=== PATIENT | female | born 1965 | race Caucasian/White ===

== ENCOUNTER → 2016-07-10 | Day surgery (SDC) | payer BC ==
[~2016-07-10] VITALS: Ht 162.6 cm; Wt 61.2 kg
[~2016-07-10] MED LIST: IBUP600T26 PO; IBUPROFEN 600 MG TAB PO PRN; KETOROLAC 60 MG/2 ML VIAL (J1885) As Ordered ONE; LIDOCAINE 1% MDV 20ML VIAL As Ordered ONE; LIDOCAINE 2% INJ 100 MG/5 ML SDV (FOR ANES.) As Ordered ONE; LR 1,000 ML IV SCH; MIDAZOLAM INJ 2 MG/2 ML VIAL (J2250) As Ordered ONE; NORCO, ANEXSIA 5/325MG TABLET (HYDROcodone/ACETAMINOPHEN) PO PRN; NORCOTAB PO; ONDANSETRON 4MG/2ML VIAL (J2405) As Ordered ONE; PROPOFOL 200 MG/20 ML VIAL As Ordered ONE; fentaNYL 100 MCG/2 ML INJECTION (J3010) As Ordered ONE
[2016-07-10 09:29] LABS: CONTROL LINE UCG INT CTR LINE PRESENT
[2016-07-10 13:52] VITALS: BP 125/67
--- NOTE | 2016-07-11 05:27 | RO ---
DATE OF PROCEDURE: 07/10/2016 PREOPERATIVE DIAGNOSES/INDICATION FOR SURGERY: Menorrhagia, dysmenorrhea. POSTOPERATIVE DIAGNOSES: Menorrhagia, dysmenorrhea. PROCEDURE: Dilation and curettage, hysteroscopy, NovaSure ablation and paracervical block. SURGEON: Chitra Lee MD SOCIAL MEDIA CONTENT SPECIALIST: ANESTHESIA: Monitored anesthesia care (MAC) and the paracervical block I placed. BRIEF DESCRIPTION OF PROCEDURE AND FINDINGS: Rebecca was brought to the operating room where MAC sedation was given and then after prepping and emptying of the bladder we placed a paracervical block with a total of 20 mL of 1% lidocaine without epinephrine giving 5 mL each at 2, 4, 8 and 10 o'clock on the cervix in the usual fashion using a spinal needle. We waited a full minute for that to set up and then carefully sounded and dilated the uterus. We had an endometrial cavity length of 6 after sounding to 4 and 10 for her cervix and total uterus, respectively. We then carefully dilated in order to allow the hysteroscope to be placed and visualize the endometrial cavity, which was normal in appearance. There were normal ostia, slight irregularity to the anterior right consistent with the possibility of either scar, intramural lesion that sort of thing, but no endometrial lesion involved in this. We then further dilated the cervix in order to allow the introduction of the NovaSure. Length had already been measured at 6. Width was measured at 4.5 and an uncomplicated NovaSure after passing first visualization with no perforation and sounding with no perforation and then, the device with no perforation we then had an uncomplicated NovaSure ablation and the procedure was then ended. Estimated blood loss is less than 5 mL. Fluid replacement was crystalloid. Complications: None. Condition and disposition: Rebecca tolerated the procedure well and was recovering in the recovery room in good condition.
== END | disposition home or self-care (01) ==
LOC: M SDC 08:45
PROVIDERS: ATTEND Obstetrics & Gynecology
DX: N92.0 Excessive and frequent menstruation with regular cycle (principal); N94.6 Dysmenorrhea, unspecified
CPT/HCPCS: 58563; 84703; 88305; C2618; J1885; J2250; J2405; J3010

== ENCOUNTER → 2018-03-06 | Outpatient (CLI) | payer BC | LOC: M WHC 13:26 | DX: Z12.31 Encounter for screening mammogram for malignant neoplasm of breast (principal) | CPT/HCPCS: 77067 ==

== ENCOUNTER → 2019-03-09 | Outpatient (CLI) | payer BC ==
[~2019-03-09] MED LIST changes: +HYDR-3715 PO; +IBUP-1022 PO; -IBUP600T26 PO; -IBUPROFEN 600 MG TAB PO PRN; -KETOROLAC 60 MG/2 ML VIAL (J1885) As Ordered ONE; -LIDOCAINE 1% MDV 20ML VIAL As Ordered ONE; -LIDOCAINE 2% INJ 100 MG/5 ML SDV (FOR ANES.) As Ordered ONE; -LR 1,000 ML IV SCH; -MIDAZOLAM INJ 2 MG/2 ML VIAL (J2250) As Ordered ONE; -NORCO, ANEXSIA 5/325MG TABLET (HYDROcodone/ACETAMINOPHEN) PO PRN; -NORCOTAB PO; -ONDANSETRON 4MG/2ML VIAL (J2405) As Ordered ONE; -PROPOFOL 200 MG/20 ML VIAL As Ordered ONE; -fentaNYL 100 MCG/2 ML INJECTION (J3010) As Ordered ONE
--- NOTE | 2019-03-09 16:52 | REPMRS ---
Patient History The patient states she has not had a clinical breast exam in over a year. No known family history of cancer. No Hormone Replacement Therapy Digital Woman Screen Mammo: March 09, 2019 - Exam #: [id number] Bilateral CC and MLO view(s) were taken. Technologist: Nathalia Jose, Technologist Prior study comparison: March 06, 2018, bilateral digital woman screen mammo performed at [facility]. March 05, 2017, digital woman screen mammo performed at [facility]. March 02, 2016, digital woman screen mammo performed at [facility]. FINDINGS: The breast tissue is heterogeneously dense. This may lower the sensitivity of mammography. There is a moderate amount of heterogeneously dense fibroglandular tissue which is fairly symmetric. There is no interval development of dominant mass, architectural distortion, or grouped microcalcification typical of malignancy. There has been no change in the appearance of the mammogram from the prior studies. 3-D tomosynthesis shows no additional findings. Assessment: BI-RADS/ACR category 1 mammogram. Negative Mammogram. Recommendation Routine screening mammogram of both breasts in 1 year (for women over age 40). This patient's Lifetime Breast Cancer RIsk is estimated at 7.7 %. This mammogram was interpreted with the aid of an FDA-approved computer-aided dectection system. Electronically Signed By: Saurabh Rivas MD 03/09/19 [id number]
== END ==
LOC: M WHC 13:48
PROVIDERS: ATTEND Nurse Practitioner Women's Health
DX: Z12.31 Encounter for screening mammogram for malignant neoplasm of breast (principal)

== ENCOUNTER → 2020-03-10 | Outpatient (CLI) | payer BC ==
--- NOTE | 2020-03-10 15:03 | REPMRS ---
Patient History The patient states she had a clinical breast exam in 2019. No known family history of cancer. No Hormone Replacement Therapy Digital Woman Screen Mammo: March 10, 2020 - Exam #: [id number] Bilateral CC and MLO view(s) were taken. Technologist: Shaylee Toscano, Technologist Prior study comparison: March 09, 2019, bilateral digital woman screen mammo performed at [facility]. March 06, 2018, bilateral digital woman screen mammo performed at [facility]. March 05, 2017, digital woman screen mammo performed at [facility]. FINDINGS: The breast tissue is heterogeneously dense. This may lower the sensitivity of mammography. The Volpara volumetric breast density category is: C. There is a moderate amount of heterogeneously dense fibroglandular tissue which is fairly symmetric. There is no interval development of dominant mass, architectural distortion, or grouped microcalcification typical of malignancy. There has been no change in the appearance of the mammogram from the prior studies. 3-D tomosynthesis shows no additional findings. Assessment: BI-RADS/ACR category 1 mammogram. Negative Mammogram. Recommendation Routine screening mammogram of both breasts in 1 year (for women over age 40). This patient's Lifetime Breast Cancer RIsk is estimated at 7.5 %. This mammogram was interpreted with the aid of an FDA-approved computer-aided dectection system. Electronically Signed By: Saurabh Rivas MD 03/10/20 0557
== END ==
LOC: M WHC 13:09
PROVIDERS: ATTEND Nurse Practitioner Women's Health
DX: Z12.31 Encounter for screening mammogram for malignant neoplasm of breast (principal); N64.89 Other specified disorders of breast

== ENCOUNTER → 2020-03-10 | Outpatient (REF) | payer BC | LOC: M SFHCWAGY 17:29 | PROVIDERS: ATTEND Nurse Practitioner Women's Health | DX: Z12.4 Encounter for screening for malignant neoplasm of cervix (principal); Z01.419 Encounter for gynecological examination (general) (routine) without abnormal findings ==

== ENCOUNTER → 2021-04-07 | Outpatient (CLI) | payer BC | LOC: M WHC 12:52 | PROVIDERS: ATTEND Nurse Practitioner Women's Health | DX: Z12.31 Encounter for screening mammogram for malignant neoplasm of breast (principal) ==

== ENCOUNTER → 2021-04-25 | Outpatient (CLI) | payer BC | LOC: M WHC 12:26 | PROVIDERS: ATTEND Nurse Practitioner Women's Health | DX: Z12.31 Encounter for screening mammogram for malignant neoplasm of breast (principal); N63.10 Unspecified lump in the right breast, unspecified quadrant | CPT/HCPCS: 77065; G0279 ==

== ENCOUNTER → 2022-06-19 | Outpatient (CLI) | payer BC | LOC: M WHC 14:15 | PROVIDERS: ATTEND Nurse Practitioner Family | DX: Z12.31 Encounter for screening mammogram for malignant neoplasm of breast (principal) ==

== ENCOUNTER → 2025-04-01 | Outpatient (REF) | payer BC ==
[~2025-04-01] MED LIST changes: -IBUP-1022 PO; +IBUP600T42 PO
[2025-04-03 12:57] LABS: HPV APTIMA Not Detected (Not Detected)
== END ==
LOC: M SFHCWAGY 17:38
PROVIDERS: ATTEND Physician Assistant
DX: Z12.4 Encounter for screening for malignant neoplasm of cervix (principal); N95.2 Postmenopausal atrophic vaginitis

== ENCOUNTER → 2025-04-01 | Outpatient (CLI) | payer BC | LOC: M WHC 13:56 | PROVIDERS: ATTEND Physician Assistant | DX: Z12.31 Encounter for screening mammogram for malignant neoplasm of breast (principal); R92.323 Mammographic fibroglandular density, bilateral breasts ==